=== PATIENT | male | born 1990 | race Caucasian/White ===

== ENCOUNTER 2023-02-04 15:49 | Emergency (ER) | payer BC, SELFPAY ==
--- NOTE | ~2023-02-04 | CT_ITS ---
EXAMINATION: CT abdomen pelvis w con DATE: 02/04/2023 18:13 INDICATION: epigastirc/LUQ pain, N/V TECHNIQUE: Computed tomography (CT) of the abdomen and pelvis was performed with 100 mL Omnipaque-350 intravenous contrast. Automated exposure control and iterative reconstruction technique were employe d. The dose-length product was 505.90 mGy-cm. COMPARISON: None. FINDINGS: Lower thorax: Unremarkable Liver: Left lobe cyst or hemangioma.. Biliary/Gallbladder: Gallbladder is normal. No bile duct dilation. Pancreas: No mass or duct dilation. Spleen: Normal. Adrenals:No mass. Kidneys: Right renal cysts. No suspicious mass, stone, or hydronephrosis. GI tract: Mild distal esophageal and gastric wall edema. Dilation of the second, third, and fourth po rtion of the duodenal C-loop, with mild dilation of a short segment of proximal jejunum, that gradual ly transitions to normal caliber in the left upper quadrant. No wall thickening. No large bowel dilat ion. Normal appendix. Mesentery/Peritoneum: No ascites, mass, or free air. Retroperitoneum: No mass. Pelvis: Pelvic organs are within normal limits. Soft Tissues: Soft tissues and body wall unremarkable. Bones: No acute osseous finding. IMPRESSION: Mild esophagitis/gastritis. Ileus involving the duodenal C-loop and a short segment of proximal jejunum. Early/partial obstructio n not excluded. Reviewed, dictated and finalized at location K. IMPRESSION: Mild esophagitis/gastritis. Ileus involving the duodenal C-loop and a short segment of proximal jejunum. Ea rly/partial obstruction not excluded.
[2023-02-04 15:53] VITALS: BP 153/75; PULSE 90; RESP 16; TEMP 36.4; O2SAT 100
[2023-02-04 16:23] LABS: Basophils Absolute Auto 0.1 K/mm3 (0.0-0.1); Basophils Percent Auto 0.4 % (0.2-1.2); Eosinophils Absolute Auto 0.1 K/mm3 (0-0.3); Eosinophils Percent Auto 0.3 % (0-4.4); Hematocrit 46.5 % (42.0-52.0); Hemoglobin 16.1 g/dL (14.0-18.0); Immature Granulocyte Absolute 0.05 K/mm3 (0.00-0.031); Immature Granulocyte Percent A 0.3 % (0-0.5); Mean Corpuscular HGB Conc 34.6 g/dl (32-36); Mean Corpuscular Hemoglobin 31.4 pg (26-34); Mean Corpuscular Volume 90.8 fl (80-100); Mean Platelet Volume 12.4 fl (7.4-10.4); Monocytes Absolute Auto 0.8 K/mm3 (0.1-0.6); Neutrophils Absolute Auto 13.6 K/mm3 (1.3-6.7); Platelet Count Result 206 k/mm3 (150-375); Red Blood Count 5.12 M/mm3 (4.6-6.20); Red Cell Distribution Width 11.7 % (11.5-14.5); White Blood Count 16.4 K/mm3 (4.5-10.0)
[2023-02-04 16:27] LABS: Appearance Urine Clear (Clear); Bacteria Urine None Seen /hpf; Bilirubin Urine Negative (Negative); Blood Urine Negative (Negative); Color Urine Yellow (Yellow); Glucose Urine UA Negative (Negative); Ketones Urine 3+ mg/dL (Negative); Leukocyte Esterase Ur Negative LEU/UL (Negative); Nitrate Urine Negative (Negative); Non Pathogenic Casts 0-2; Protein Urine Trace mg/dL (Negative); RBC Urine 0-2 /hpf (0-2); Specific Grav Ur 1.026 (1.001-1.035); Squamous Epithelial Cell Urine None seen /hpf (Few); WBC Urine 0-5 /hpf; pH Urine 7.5 (5.0-9.0)
[2023-02-04 16:30] LABS: Add Urine Microscopic? YES
[2023-02-04 16:35] VITALS: BP 144/80; O2SAT 99
[2023-02-04 16:46] VITALS: BP 157/54; O2SAT 97
[2023-02-04] MEDS: ONDANSETRON INJ 4 MG/2 ML VIAL IV PUSH ×2 (17:02→19:31)
[2023-02-04] MEDS: SODIUM CHLORIDE 0.9% IV 1,000 ML 999 ML IV CONT ×2 (17:04→17:59)
[2023-02-04 17:13] LABS: Basophils Absolute Auto 0.1 K/mm3 (0.0-0.1); Basophils Percent Auto 0.4 % (0.2-1.2); Eosinophils Percent Auto 0.2 % (0-4.4); Hematocrit 45.2 % (42.0-52.0); Hemoglobin 15.9 g/dL (14.0-18.0); Immature Granulocyte Absolute 0.04 K/mm3 (0.00-0.031); Immature Granulocyte Percent A 0.3 % (0-0.5); Lymphocytes Absolute Auto 1.36 K/mm3 (0.9-3.2); Lymphocytes Percent Auto 9.2 % (18.3-44.2); Mean Corpuscular HGB Conc 35.2 g/dl (32-36); Mean Corpuscular Hemoglobin 31.6 pg (26-34); Mean Corpuscular Volume 89.9 fl (80-100); Mean Platelet Volume 12.3 fl (7.4-10.4); Monocytes Absolute Auto 0.5 K/mm3 (0.1-0.6); Monocytes Percent Auto 3.5 % (2.6-8.5); Neutrophils Absolute Auto 12.7 K/mm3 (1.3-6.7); Neutrophils Percent Auto 86.4 % (45.5-73.1); Platelet Count Result 185 k/mm3 (150-375); Red Blood Count 5.03 M/mm3 (4.6-6.20); Red Cell Distribution Width 11.6 % (11.5-14.5); White Blood Count 14.8 K/mm3 (4.5-10.0)
[2023-02-04 17:24] LABS: Alanine Aminotransferase 25 U/L (6-50); Alkaline Phosphatase 98 U/L (38-126); Anion Gap 15 mmol/L (8-16); Aspartate Amino Transferase 33 U/L (17-59); Bilirubin,Total 0.6 mg/dL (0.2-1.3); Blood Urea Nitrogen 15 mg/dL (9-20); Calcium 9.6 mg/dL (8.4-10.2); Carbon Dioxide 22 mmol/L (22-30); Chloride 100 mmol/L (98-107); Estimated CRCL calculation 107 ml/min; Estimated Glomerular Filt Rate > 60; Glucose 118 mg/dL (65-110); Lipase 86 U/L (23-300); Potassium 3.5 mmol/L (3.4-5.0); Sodium 137 mmol/L (137-145)
--- NOTE | 2023-02-04 17:42 | ED.ABDPAIN ---
HPI - Abdominal Pain General Chief Complaint: Abdominal Pain <LYNDSEY Cardenas Last Filed: 02/04/23 19:47> Stated Complaint: n/v, diaphoresis, abd pain <LYNDSEY Cardenas Last Filed: 02/04/23 19:47> Time Seen by Provider: 02/04/23 16:54 <LYNDSEY Cardenas Last Filed: 02/04/23 19:47> Source: patient <LYNDSEY Cardenas Last Filed: 02/04/23 19:47> Mode of arrival: ambulatory <LYNDSEY Cardenas Last Filed: 02/04/23 19:47> Limitations: no limitations <LYNDSEY Cardenas Last Filed: 02/04/23 19:47> History of Present Illness HPI narrative: Patient is a 32-year-old male who presents ED with report of upper abdominal pain, nausea, vomiting. Patient reports he ate [employer] around 1 PM today and thought the food tasted more spicy than usual. He developed discomfort in his left upper abdomen and nausea approximately 10 minutes later. He began vomiting and notes he had approximately 20 episodes of emesis and was unable to keep anything down. He tried taking Protonix at home but was unable to keep this down either. He was not able to take anything further for pain. Denies any fever, diarrhea, constipation, urinary symptoms. <LYNDSEY Cardenas Last Filed: 02/04/23 19:47> Related Data Allergies/Adverse Reactions: Allergies Allergy/AdvReac Type Severity Reaction Status Date / Time amoxicillin AdvReac Hives Verified 02/04/23 16:32 <LYNDSEY Cardenas Last Filed: 02/04/23 19:47> Review of Systems Review of Systems: CONSTITUTIONAL: Denies fever, chills, or sweats. CARDIOVASCULAR: Denies chest pain. RESPIRATORY: Denies dyspnea. GASTROINTESTINAL: See HPI. GENITOURINARY: Denies dysuria or hematuria. MUSCULOSKELETAL: Denies back pain, joint pain, or myalgia. NEUROLOGIC: Denies headache, numbness, or weakness. <Hina Wise PA-C - Last Filed: 02/04/23 19:47> All systems reviewed & are unremarkable except as noted in HPI and below <Hina Wise PA-C - Last Filed: 02/04/23 19:47> Exam Narrative: GENERAL: Mildly ill appearing, well-nourished, non-toxic, in no acute distress. HEAD: Normocephalic, atraumatic. NECK: Supple. No adenopathy, no masses. RESPIRATORY: Airway patent, respirations nonlabored. Clear to auscultation bilaterally, no rales, rhonchi, wheezing. CARDIOVASCULAR: Regular rate and rhythm without murmurs, rubs, or gallops. Peripheral pulses 2+ and equal bilaterally. ABDOMINAL: Soft, tenderness in epigastric region and left upper abdomen, no rebound, nondistended, no hepatosplenomegaly. Normoactive BS. MUSCULOSKELETAL: Moves all extremities. Strength/ROM intact without gross deformities. SKIN: Warm, dry, normal color. No rashes. NEURO: A&O X3. Speech clear. Cranial nerves II-XII grossly intact. Steady gait. No ataxic movements. PSYCHIATRIC: Appropriate mood and affect. Normal interaction. <Hina Wise PA-C - Last Filed: 02/04/23 19:47> Course GEODETIC ENGINEER/PA Physician Supervision I agree with midlevel documentation; I performed the medical decision making component of this evaluation. Patient presenting with nausea, vomiting, abdominal pain, imaging showing possible ileus, however he has normal bowel movements, after medications here was feeling much better, he would prefer to go home, tolerating p.o. here without throwing up and is given strict precautions and follow-up. <Jennifer Wetzel MD - Last Filed: 02/04/23 20:59> Vital Signs Vital signs: Vital Signs Temperature 97.6 F 02/04/23 15:53 Pulse Rate 90 02/04/23 15:53 Respiratory Rate 16 02/04/23 15:53 Blood Pressure 153/75 H 02/04/23 15:53 Pulse Oximetry 100 02/04/23 15:53 Oxygen Delivery Room Air 02/04/23 15:53 Temperature 98.3 F 02/04/23 19:30 Pulse Rate 81 02/04/23 20:38 Respiratory Rate 12 02/04/23 20:38 Blood Pressure 128/72 02/04/23 20:38 Pulse Oximetry 97 02/04/23
[2023-02-04] MEDS: MORPHINE SULFATE (*CRX) 4 MG/ML INJ IV PUSH ×2 (17:57→19:33)
[2023-02-04] MEDS: PANTOPRAZOLE SODIUM IV 40 MG VIAL IV PUSH (17:59)
[2023-02-04 18:02] LABS: Magnesium 1.7 mg/dL (1.6-2.3)
[2023-02-04 18:29] VITALS: BP 130/74; O2SAT 96
[2023-02-04 19:30] VITALS: PULSE 89; RESP 15; TEMP 36.8; O2SAT 100
--- NOTE | 2023-02-04 20:30 | PC.NURSE ---
Patient was able to keep down water and crackers with no sensation of N/V.
[2023-02-04 20:38] VITALS: BP 128/72; PULSE 81; RESP 12; O2SAT 97
== END 2023-02-04 20:39 | disposition home or self-care (01) ==
PROVIDERS: Emergency Medicine; Emergency Provider Physician Assistant; PCP Internal Medicine
DX: K29.70 Gastritis, unspecified, without bleeding (principal); K56.7 Ileus, unspecified; R11.2 Nausea with vomiting, unspecified
CPT/HCPCS: 36415; 74177; 80053; 81001; 83690; 83735; 85025; 96361; 96374; 96375; 96376; 99284; C9113; J2270; J2405; J7030; Q9967

== ENCOUNTER 2023-03-05 10:30 | Outpatient (CLI) | payer BC, SELFPAY ==
[2023-03-05 12:07] LABS: Hematocrit 46.1 % (42.0-52.0); Hemoglobin 15.2 g/dL (14.0-18.0); Mean Corpuscular Hemoglobin 31.7 pg (26-34); Mean Platelet Volume 12.4 fl (7.4-10.4); Platelet Count Result 194 k/mm3 (150-375); White Blood Count 12.1 K/mm3 (4.5-10.0)
== END 2023-03-05 10:31 | disposition home or self-care (01) ==
PROVIDERS: PCP Internal Medicine; Visit Provider Nurse Practitioner
DX: D72.829 Elevated white blood cell count, unspecified (principal)
CPT/HCPCS: 36415; 85027

== ENCOUNTER 2023-03-05 12:04 | Emergency (ER) | payer BC, SELFPAY ==
[2023-03-05] VITALS (14 sets, daily range): BP systolic 155; BP diastolic 97; PULSE 48–102; RESP 10–24; TEMP 36.9; O2SAT 100
--- NOTE | ~2023-03-05 | CT_ITS ---
EXAMINATION: CT abdomen pelvis w con DATE: 03/05/2023 14:13 INDICATION: Left upper quadrant abdominal pain. Nausea and vomiting. TECHNIQUE: Computed tomography (CT) of the abdomen and pelvis was performed with 100 mL Omnipaque 350 intravenous contrast. Automated exposure control and iterative reconstruction technique were employe d. The dose-length product was 384.12 mGy-cm. COMPARISON: CT abdomen and pelvis 02/04/2023 FINDINGS: The visualized portions of the lung bases demonstrate mild atelectasis. No pleural effusion . There is a 2.3 cm hyperenhancing mass in right hepatic lobe with interrupted interrupted peripheral puddling of contrast, consistent with a hemangioma. There is a 2.0 cm hyperenhancing mass in left he patic lobe. There is focal steatosis in the liver adjacent to ligamentum teres. The gallbladder is no rmal in size. The spleen, pancreas, adrenal glands, and left kidney are normal. There are cysts in ri ght kidney measuring up to 11 mm. There are no dilated loops of bowel. The appendix is normal. There are no pathologically enlarged lymph nodes. There is no free intraperitoneal fluid. There is an umbil ical hernia containing fat. There is mild thoracic and lumbar spondylosis. IMPRESSION: 1. Umbilical hernia containing fat. 2. 2.0 cm hyperenhancing liver mass. In the absence of known malignancy or chronic liver disease, thi s finding is likely a hemangioma or focal nodular hyperplasia. Reviewed, dictated and finalized at location E. IMPRESSION: 1. Umbilical hernia containing fat. 2. 2.0 cm hyperenhancing liver mass. In the absence of known malignancy or tube carrier quyen liver disease, this finding is likely a hemangioma or focal nodular hyperpl luna.
--- NOTE | 2023-03-05 12:14 | ED.ABDPAIN ---
HPI - Abdominal Pain General Chief Complaint: Abdominal Pain Stated Complaint: abdomen pain Time Seen by Provider: 03/05/23 12:13 Source: patient Mode of arrival: ambulatory Limitations: no limitations History of Present Illness HPI narrative: 32 years old white male came to the emergency room because of abdominal pain that started last night associated with frequent vomiting and dry heaves. Patient was seen by loan servicing specialist this morning prior to arrival to the emergency room. Patient had similar symptoms of unknown etiology. Last marijuana use last night. He denies any fever or chills or urinary symptoms. Reports a lot of stress. MD elicited complaint: abdominal pain Related Data Allergies Allergy/AdvReac Type Severity Reaction Status Date / Time amoxicillin AdvReac Hives Verified 03/05/23 09:51 Review of Systems Review of Systems: All systems reviewed & are unremarkable except as noted in HPI and below PMFSH Past Medical History Medical History Abnormal CT scan, small bowel Abnormal CT scan, stomach Bloating Early satiety Epigastric pain History of drug abuse in remission Leukocytosis Social History Social History Smoking status: Never smoker Exam Narrative: General appearance: Well-developed, well-nourished Skin: Normal color Head: Normocephalic, nontraumatic Eyes: Clear conjunctiva ENT: Oropharynx normal, ears normal, nose normal Neck: Supple, nontender Chest and respiratory: Airway patent, no respiratory distress, no accessory muscle use Heart: Regular rate/rhythm Abdomen: Soft, nontender, no organomegaly, quiet bowel sounds Vascular: Normal peripheral pulses, normal capillary refill. Musculoskeletal: Normal range of motion, nontender back Neurologic: Alert and oriented ?3, [employer] is normal as tested, no gross motor deficit Course Reevaluation(s) Reevaluation #1: Feeling much better compared to on arrival to the ED Date: 03/05/23 Time: 15:09 Vital Signs Vital signs: Vital Signs Temperature 36.9 C 03/05/23 12:12 Pulse Rate 66 03/05/23 12:12 Respiratory Rate 18 03/05/23 12:12 Blood Pressure 155/97 H 03/05/23 12:12 Pulse Oximetry 100 03/05/23 12:12 Oxygen Delivery Room Air 09/07/23 12:12 Temperature 36.9 C 03/05/23 12:12 Pulse Rate 54 L 03/05/23 16:45 Respiratory Rate 15 03/05/23 16:45 Blood Pressure 155/97 H 03/05/23 12:12 Pulse Oximetry 100 03/05/23 13:14 Oxygen Delivery Room Air 03/05/23 12:12 MDM - Abdominal Pain MDM Narrative Medical decision making narrative: Patient presents with the above complaint, physical examination showed severe dry heaves Physical examination showed mild diffuse upper abdominal tenderness Differential diagnosis includes cyclic vomiting syndrome, cannabis hyperemesis, anxiety-like symptoms, gastritis Work-up today include CBC, CMP, lipase, urine analysis, urine drug screen, CT abdomen pelvis with IV contrast which showed no new lab work-up difference compared to 1 month ago, CT abdomen pelvis showed no significant abnormality to explain patient condition. Cannabis hyperemesis and/or stress like symptoms is my concern. In the ED patient received 2 L of normal saline, 10 mg of Reglan, 50 mg of Benadryl, 1 mg of lorazepam, 1 g of Tylenol, 4 mg of morphine IV with slight improvement. Patient kept having loud dry heaves. Haldol 5 mg IM given with Magic improvement. Currently patient denying any pain or nausea and feeling great to go home. the pt was discharged to home.the pt,s condition upon discharge was fair,education was provided to t
[2023-03-05 12:49] LABS: Basophils Absolute Auto 0.1 K/mm3 (0.0-0.1); Basophils Percent Auto 0.5 % (0.2-1.2); Eosinophils Absolute Auto 0.2 K/mm3 (0-0.3); Eosinophils Percent Auto 1.4 % (0-4.4); Hematocrit 47.1 % (42.0-52.0); Immature Granulocyte Absolute 0.05 K/mm3 (0.00-0.031); Immature Granulocyte Percent A 0.4 % (0-0.5); Lymphocytes Absolute Auto 2.62 K/mm3 (0.9-3.2); Lymphocytes Percent Auto 21.7 % (18.3-44.2); Mean Corpuscular Hemoglobin 31.7 pg (26-34); Mean Corpuscular Volume 93.3 fl (80-100); Mean Platelet Volume 12.1 fl (7.4-10.4); Monocytes Absolute Auto 0.7 K/mm3 (0.1-0.6); Monocytes Percent Auto 5.5 % (2.6-8.5); Neutrophils Absolute Auto 8.5 K/mm3 (1.3-6.7); Neutrophils Percent Auto 70.5 % (45.5-73.1); Platelet Count Result 200 k/mm3 (150-375); Red Blood Count 5.05 M/mm3 (4.6-6.20); White Blood Count 12.1 K/mm3 (4.5-10.0)
[2023-03-05] MEDS: METOCLOPRAMIDE HCL INJ 10 MG/2 ML VIAL IV PUSH (13:03)
[2023-03-05] MEDS: diphenhydrAMINE HCl INJ 50 MG/ML VIAL IV PUSH (13:03)
[2023-03-05] MEDS: LORazepam INJ (*CRX) 2 MG/ML VIAL 1 MG IV PUSH (13:03)
[2023-03-05] MEDS: SODIUM CHLORIDE 0.9% IV 1,000 ML 999 ML IV CONT ×2 (13:03→13:04)
[2023-03-05 13:13] LABS: Alanine Aminotransferase 20 U/L (6-50); Albumin Level 4.9 g/dL (3.5-5.1); Alkaline Phosphatase 82 U/L (38-126); Anion Gap 13 mmol/L (8-16); Aspartate Amino Transferase 27 U/L (17-59); Bilirubin,Total 0.8 mg/dL (0.2-1.3); Blood Urea Nitrogen 20 mg/dL (9-20); Calcium 9.7 mg/dL (8.4-10.2); Carbon Dioxide 23 mmol/L (22-30); Chloride 103 mmol/L (98-107); Estimated Glomerular Filt Rate > 60; Glucose 114 mg/dL (65-110); Lipase 68 U/L (23-300); Potassium 4.3 mmol/L (3.4-5.0); Sodium 139 mmol/L (137-145)
[2023-03-05] MEDS: ACETAMINOPHEN 500 MG TABLET 1000 MG PO (14:27)
[2023-03-05 14:33] LABS: Appearance Urine Clear (Clear); Bilirubin Urine Negative (Negative); Blood Urine Negative (Negative); Color Urine Yellow (Yellow); Glucose Urine UA Negative (Negative); Ketones Urine 1+ mg/dL (Negative); Leukocyte Esterase Ur Negative LEU/UL (Negative); Nitrate Urine Negative (Negative); Protein Urine Negative (Negative); Specific Grav Ur 1.026 (1.001-1.035); pH Urine 7.5 (5.0-9.0)
[2023-03-05 14:42] LABS: Add Urine Microscopic? YES
[2023-03-05] MEDS: MORPHINE SULFATE (*CRX) 4 MG/ML INJ IV PUSH (15:14)
[2023-03-05] MEDS: HALOPERIDOL LACTATE 5 MG/ML VIAL IM (15:35)
[2023-03-05 16:19] LABS: Amphetamine Screen Urine Negative (Negative); Barbiturate Screen Urine Negative (Negative); Benzodiazepines Screen Urine Negative (Negative); Cannabinoid Screen Urine Positive (Negative); Cocaine Screen Urine Negative (Negative); Methadone Screen Urine Negative (Negative); Opiate Screen Urine Negative (Negative); Phencyclidine Screen Urine Negative (Negative)
== END 2023-03-05 17:32 | disposition home or self-care (01) ==
PROVIDERS: Student in an Organized Health Care Education/Training Program; Emergency Provider Emergency Medicine; PCP Internal Medicine
DX: R11.2 Nausea with vomiting, unspecified (principal); F12.20 Cannabis dependence, uncomplicated; R68.81 Early satiety; K42.9 Umbilical hernia without obstruction or gangrene; R16.0 Hepatomegaly, not elsewhere classified
CPT/HCPCS: 36415; 74177; 80053; 80307; 81001; 83690; 85025; 96361; 96372; 96374; 96375; 99284; A9270; J1200; J1630; J2060; J2270; J2765; J7030; Q9967

== ENCOUNTER 2023-03-20 08:12 | Outpatient (CLI) | payer BC, SELFPAY ==
--- NOTE | ~2023-03-20 | XR_ITS ---
EXAMINATION: XR small bowel follow through DATE: 03/20/2023 10:41 INDICATION: Abnormal small bowel imaging. Possible ileus. TECHNIQUE: 911 Telecommunicator radiograph(s) of the abdomen was/were obtained. Oral contrast was administered, and sequential radiographs of the abdomen were obtained until oral contrast was noted to be in the proxi mal colon. A total of 6 fluoroscopic images and 6 overhead radiographs were obtained. Fluoroscopy exp osure time was 0.6 minutes. COMPARISON: CT dated 03/15/2023 FINDINGS: Transit time from the stomach to proximal colon was approximately 1 hour and 30 minutes. There is nor mal caliber throughout the small bowel. Normal mucosal fold pattern in the jejunum. There is jejunali zation of the distal ileum with increased number of mucosal folds. No tethering or abnormal mass effe ct observed upon the small bowel with real-time fluoroscopy. IMPRESSION: 1. Jejunalization of the distal ileum with increased number of folds with preserved mucosal fold nitin sadaf in the jejunum which is nonspecific but can be seen in the setting of celiac disease. Differentia l would include less likely cobble-stone mucosa in the setting of Crohn's disease. Reviewed, dictated and finalized at location A. IMPRESSION: 1. Jejunalization of the distal ileum with increased number of folds with prese rved mucosal fold pattern in the jejunum which is nonspecific but can be seen i n the setting of celiac disease. Differential would include less likely cobble- stone mucosa in the setting of Crohn's disease.
== END 2023-03-20 08:13 | disposition home or self-care (01) ==
PROVIDERS: PCP Internal Medicine; Visit Provider Nurse Practitioner
DX: K56.7 Ileus, unspecified (principal); R93.3 Abnormal findings on diagnostic imaging of other parts of digestive tract; R10.13 Epigastric pain
CPT/HCPCS: 74250

== ENCOUNTER 2023-03-25 00:37 | Day surgery (SDC) | payer BC, SELFPAY ==
[2023-03-16 11:23] VITALS: BMI 24.0
[2023-03-25 07:19] VITALS: BP 133/75; PULSE 62; RESP 16; TEMP 36.4; O2SAT 99
[2023-03-25] MEDS: LACTATED RINGERS 1,000 ML 150 ML IV CONT (07:26)
--- NOTE | 2023-03-25 08:33 | P.PNAN_ITS ---
Anes - Initial Pre Proc Eval Procedure: Operation Date: 03/25/23 08:45 Proposed Procedures p Esophagogastroduodenoscopy - Victor Hugo Long MD Date/Time: 03/25/23 08:33 Surgeon: Victor Hugo Long MD Pre Op Diagnosis: Left lower quadrant pain, Abdom.distension, Patient Data Age: 32 Gender: M Height: 1.85 m Weight: 79.9 kg Last Vital Signs Temp 97.5 F L 03/25/23 07:19 Pulse 62 03/25/23 07:19 Resp 16 03/25/23 07:19 BP 133/75 03/25/23 07:19 Pulse Ox 99 03/25/23 07:19 O2 Del Method Room Air 03/25/23 07:19 Allergies Allergy/AdvReac Type Severity Reaction Status Date / Time amoxicillin AdvReac Hives Verified 03/25/23 07:18 Home Medications Medication Instructions Recorded Confirmed Type pantoprazole 40 mg tablet,delayed 40 mg PO BID #60 tabs 03/05/23 03/25/23 Rx release sucralfate 1 gram tablet (Carafate) 1 g PO ACHS #120 tabs 03/05/23 03/25/23 Rx Patient hx anesthesia problems: none Family hx anesthesia problems: none Results Review: All pre-operative results and documents have been reviewed as part of the pre- operative evaluation. [facility] Past Medical History Medical History Abnormal CT scan, small bowel Abnormal CT scan, stomach Bloating Early satiety Epigastric pain History of drug abuse in remission Leukocytosis Social History Social History Smoking packs per day: 0.5 Smoking cigarettes per day: 10.0 Years smoked: 10 Smoking pack-years: 5.00 Smoking status: Former smoker Tobacco type: cigarettes Substance use: former Substance use type: painkillers Other substance usage details: Marijuana use daily Living arrangements: alone Gender identity (if verbalized by the patient): Male Anes - Eval Final PreProcedure Day of Procedure 03/25/23 08:33 Patient weight: normal Heart: regular rate and rhythm Lungs: clear to auscultation Airway: Mallampati scale class II Neurological: alert and oriented Last oral intake: >/= 8 hours ASA classification: II Emergent: no Anesthetic plan: proceed Anesthesia type and monitoring: general GIVS and standard monitoring Results Review: All pre-operative results and documents have been reviewed as part of the pre- operative evaluation. Informed Consent: The patient's anesthetic plan and its attendant risks and benefits were discussed with the patient/family/POA. Questions were solicited and answers provided to the satisfaction of the patient/family/POA.
--- NOTE | 2023-03-25 08:36 | WPDHPUPDATE1 ---
History and Physical Update Update Date/Time: 03/25/23 08:36 History and Physical has been reviewed, including an updated exam of the patient. There are NO changes in the patient's condition. Risks, benefits, and alternatives have been discussed and questions answered. Patient agrees to proceed with procedure.
[2023-03-25] MEDS: BENZOCAINE (*SP) 60 ML SPRAY CAN (HURRICAINE) 1 SPRAY MUCOUS MEM (08:43)
[2023-03-25 08:56] VITALS: BP 118/78; PULSE 54; RESP 16; O2SAT 100
[2023-03-25 09:06] VITALS: BP 127/80; PULSE 53; RESP 16; O2SAT 100
[2023-03-25 09:16] VITALS: BP 130/78; PULSE 61; RESP 16; O2SAT 100
== END 2023-03-25 09:30 | disposition home or self-care (01) ==
PROVIDERS: PCP Internal Medicine; Visit Provider Internal Medicine Gastroenterology
PROC: 0DJ08ZZ Inspection of Upper Intestinal Tract, Via Natural or Artificial Opening Endoscopic (ICD-10-PCS; CPT 43235; principal; 2023-03-25 08:45)
DX: K30 Functional dyspepsia (principal); R11.0 Nausea; F12.90 Cannabis use, unspecified, uncomplicated; Z87.891 Personal history of nicotine dependence
CPT/HCPCS: 43239; 88305; J2001; J2704; J7120

== ENCOUNTER 2023-08-13 00:22 | Day surgery (SDC) | payer BC, SELFPAY ==
[2023-08-07 10:56] VITALS: BMI 23.8
--- NOTE | 2023-08-07 11:00 | PC.NURSE ---
Report to the Outpatient Waiting Room, entrance under the green pavilion located off [facility], at time 1000 on date 08/13/23. Planned Procedure Time: 1200. Time changes happen often and if your time is changed the preop area will call you the afternoon before. - You and your visitor will be asked to self-screen and do not enter if you have any COVID symptoms. - A mask is optional within the hospital at this time. Patients may have clear liquids (water, carbonated beverages, clear teas, apple juice) until 3 hours prior to surgery with a maximum of 20 ounces. - No food from midnight until time of surgery Take the following medications with a SIP of water the morning of surgery: N/A DO NOT STOP ANY OF YOUR OTHER PRESCRIPTION MEDICATIONS PRIOR TO SURGERY ?EXCEPT THE FOLLOWING Medications to discontinue per physician: N/A Date to take last dose: N/A Please no make-up, nail italian, hairspray, perfume, deodorant, or body powder the day of surgery. No jewelry (including any body piercings) or valuables the day of surgery, leave them at home. Please take a shower or bath the night before, or the morning of, surgery with an antibacterial soap. Wear comfortable, loose fitting clothing. - Jewelry must be removed prior to entering the operating room. Rings and piercings that are not removed may be cut off. - The hospital will not accept responsibility for valuables. - Please leave all valuables, including medications, at home the day of surgery. If you are going home after surgery, a licensed oil transport driver must drive you home. - NO public transportation without another adult if you receive anesthesia. - We recommend that an adult stay with you for 24 hours following discharge. - We also recommend that you do not drive, make important decision, drink alcoholic beverages, or take any drugs that were not prescribed by your health care provider for at least 24 hours after your discharge time. Follow any additional instructions given to you from your surgeon. If you or anyone in your household have experienced Covid symptoms in the past week, please notify your surgeon or the nurse liaison at the phone number below for possible testing. Telephone instructions given to PT - JIMMY SPIVEY and asked if any additional questions and then verbalized understanding. Patient advised to call surgeon office or pre surgery nurse liaison [phone] if any additional questions.
--- NOTE | 2023-08-12 09:49 | WPDANESEPPF ---
Anes - Initial Pre Proc Eval Procedure: Operation Date: 08/13/23 12:00 Proposed Procedures p CO2 Laser Vaporization of Genital Condylomas - Bradley Sánchez MD Date/Time: 08/12/23 09:49 Surgeon: Bradley Sánchez MD Pre Op Diagnosis: Genital Warts Patient Data Age: 32 Gender: M Height: 1.85 m Weight: 82 kg Allergies Allergy/AdvReac Type Severity Reaction Status Date / Time amoxicillin AdvReac Hives Verified 08/13/23 09:59 Home Medications Medication Instructions Recorded Confirmed Type No Home Medications 08/07/23 08/13/23 History Patient hx anesthesia problems: none Family hx anesthesia problems: none Results Review: All pre-operative results and documents have been reviewed as part of the pre-operative evaluation. [facility] Past Medical History Medical History Abnormal CT scan, small bowel Abnormal CT scan, stomach Bloating Early satiety Epigastric pain History of drug abuse in remission Leukocytosis Social History Social History (Updated 08/13/23 @ 10:49 by Mark Kearney DO) Smoking packs per day: 0.5 Smoking cigarettes per day: 10.0 Years smoked: 5 Smoking pack-years: 2.50 Smoking status: Former smoker Tobacco type: cigarettes Smoking end date: 06/29/20 Alcohol intake: never Substance use: never Substance use type: does not use Other substance usage details: occasional Living arrangements: with family Gender identity (if verbalized by the patient): Male Spiritual care concerns: No Anes - Eval Final PreProcedure Day of Procedure 08/12/23 09:49 Patient weight: normal Heart: regular rate and rhythm Lungs: clear to auscultation Airway: Mallampati scale class II Neurological: alert and oriented Last oral intake: >/= 8 hours ASA classification: II Emergent: no Anesthetic plan: proceed Anesthesia type and monitoring: general LMA and standard monitoring Results Review: All pre-operative results and documents have been reviewed as part of the pre-operative evaluation. Informed Consent: The patient's anesthetic plan and its attendant risks and benefits were discussed with the patient/family/POA. Questions were solicited and answers provided to the satisfaction of the patient/family/POA.
[2023-08-13] VITALS (7 sets, daily range): BP systolic 111–133; BP diastolic 63–97; PULSE 46–69; RESP 12–20; TEMP 36.3–36.8; O2SAT 99–100
--- NOTE | 2023-08-13 06:13 | WPDHPUPDATE1 ---
History and Physical Update Update Date/Time: 08/13/23 06:13 History and Physical has been reviewed, including an updated exam of the patient. There are NO changes in the patient's condition. Risks, benefits, and alternatives have been discussed and questions answered. Patient agrees to proceed with procedure.
[2023-08-13] MEDS: LACTATED RINGERS 1,000 ML 30 ML IV CONT ×2 (10:30→12:20)
[2023-08-13] MEDS: ceFAZolin 2 GM/D5W 50 ML 2 GM/50 ML BAG IVPB (11:40)
[2023-08-13] MEDS: BACITRACIN OINTMENT 15 GM TUBE 1 APPLIC TOPICAL (12:12)
--- NOTE | 2023-08-13 12:15 | W.PM.PROC2 ---
Procedure Note - Detailed Date of Procedure 08/13/23 Pre-op Diagnosis Genital Warts Post-op Diagnosis Same Procedure Performed CO2 laser ablation of genital condyloma Surgeon Bradley Sánchez MD Anesthesia General Description of Procedure The pred patient is brought to the operative suite where he was positioned in a gentle dorsal lithotomy position after the uneventful induction of general LMA anesthesia. Wet drapes are placed around his genitalia. Everyone present in the room has donned and a viral protective mask and appropriate eyewear. A simultaneous smoke evacuation CO2 laser at 5 w is used to ablate all visible condyloma. ominance of these are at the dorsal penile base extending along the left lateral base. There was a couple small condyloma like areas around his circumcision scar. All areas were treated as is the larger condyloma on his perineum. I then inspected the entire perineum and genitalia with 5x magnification and saw no additional visible lesions to ablate. Past treatment appointment is applied to the affected areas the patient has taken recovery room having tolerated this well. Drains Yes Packing No Pathology None sent Complications No immediate complications
[2023-08-13] MEDS: oxyCODONE HCL (*CRX) 5 MG TAB IR PO (12:58)
== END 2023-08-13 13:40 | disposition home or self-care (01) ==
PROVIDERS: PCP Internal Medicine; Visit Provider Urology
PROC: (CPT 54057; principal; 2023-08-13 12:00)
DX: A63.0 Anogenital (venereal) warts (principal); Z87.891 Personal history of nicotine dependence
CPT/HCPCS: 54057; 17110; A9270; J0690; J1100; J2250; J2405; J2704; J3010; J7120

== ENCOUNTER 2025-02-26 15:07 | Emergency (ER) | payer BC, SELFPAY ==
--- OUTSIDE RECORDS SUMMARY | 2025-02-26 15:09 | XMS_ITS | Clinical Summary ---
Author Organization [address] Address [address] [place] [id number] Care Team Providers Care Incident Response Coordinator Name Role Phone Juve Recinos MD Primary Care Provider Allergies Active Allergy Reactions Criticality Noted Date Comments Amoxicillin Hives Medium 09/30/2023 Medications HYDROcodone-curt taminophen (NORCO) 5-325 mg per tablet Take by mouth every 6 (six) hours as needed for pain 08/13/[address] (PROTONIX) 40 mg EC tablet Take 1 tablet (40 mg total) by mouth every morning Active podofilox (CONDYLOX) 0.5 % external solution APPLY BY TOPICAL ROUTE 2 TIMES PER DAY FOR 3 DAYS THEN STOP FOR 4 DAYS. (REPEAT 7DAY CYCLE UNTIL NO VISIBLE WART TISSUE/MAX OF FOUR CYCLES) Active sucralfate (CARAFATE) 1 gram tablet Active Active Problems No known active problems Social History Tobacco Use Types Packs/Day Years Used Date Smoking Tobacco: Never Assessed Sex and Gender Information Value Date Recorded Sex Assigned at Not on file Legal Sex Male 5:36 AM CDT Gender Identity Not on file Sexual Orientation Not on file Obstetrics History Last Filed Vital Signs Vital Sign Reading Time Taken Comments Blood Pressure 116/68 10/09/2023 3:05 PM CDT Pulse 74 10/09/2023 3:05 PM CDT Temperature 36.6 C (97.9 F) 10/09/2023 3:05 PM CDT Respiratory Rate 20 10/09/2023 3:05 PM CDT Oxygen Saturation 98% 10/09/2023 3:05 PM CDT Inhaled Oxygen Concentration - - Weight 80.3 kg (177 lb) 10/09/2023 3:05 PM CDT Height 185.4 cm (6' 1) 10/09/2023 3:05 PM CDT Body Mass Index 23.35 10/09/2023 3:05 PM CDT Plan of Treatment Health Maintenance Due Date Last Done Comments Depression Screening 1991 Hepatitis C Screening 1991 DTaP/Tdap/Td Vaccine (1 - Tdap) 08/30/2002 Varicella Vaccines (1 of 2 - 13+ 2-dose series) 08/30/2004 Hepatitis B Screening 08/30/2009 Regular Well Visit/Exam 18-64 08/30/2009 HPV Vaccines (3 - 3-dose SCD M series) 10/08/2022 06/06/2022, 04/09/2022 Influenza Vaccine (#1) 2025 Pneumococcal vaccine <65 Aged Out No longer eligible based on patient's age to complete this topic Care Teams Incident Response Coordinator Relationship Specialty Start Date End Date Juve Recinos MD PCP - General Internal Medicine 09/30/23
[2025-02-26 15:16] VITALS: BP 135/81; PULSE 60; RESP 16; TEMP 36.6; O2SAT 99
--- NOTE | 2025-02-26 18:49 | PC.NURSE ---
Pt called out for VS @ 1830 with no answer. Pt called out at for room at 1850, no answer.
== END 2025-02-26 19:47 | disposition left against medical advice (07) ==
LOC: ANHED 19:34
PROVIDERS: PCP Internal Medicine
DX: R11.2 Nausea with vomiting, unspecified (principal)
CPT/HCPCS: 99199